=== PATIENT | male | born 1995 | race Caucasian/White ===

== ENCOUNTER 2017-07-18 14:02 | Emergency (ER) | payer OTHER | END 2017-07-18 16:34 | disposition home or self-care (01) | LOC: FTE 14:02 | DX: L03.116 Cellulitis of left lower limb (principal); J45.909 Unspecified asthma, uncomplicated | CPT/HCPCS: 99284; Z7502 ==

== ENCOUNTER 2017-12-05 15:48 | Emergency (ER) | payer SELFPAY, OTHER | END 2017-12-05 18:35 | disposition left against medical advice (07) | LOC: FTE 18:35 | DX: Z53.21 Procedure and treatment not carried out due to patient leaving prior to being seen by health care provider (principal) ==